=== PATIENT | female | born 1955 | race Caucasian/White ===

== ENCOUNTER 2017-07-31 12:38 | Inpatient (IN) | payer OTHER ==
[2017-07-31] VITALS (411 sets, daily range): BP systolic 113–132; BP diastolic 55–72; PULSE 100–112; TEMP 100.2–100.6; O2SAT 72–99
[~2017-07-31] VITALS: Ht 165.1 cm; Wt 71.4 kg
[~2017-07-31 12:38] MED LIST: ASPIRIN E.C. 8181 MG PO; COLACE 100100 MG/CAP PO; COZAAR 25MG25 MG/TAB PO; DILAUDID 2MG TAB2 MG PO; DULCOLAX S10 MG/SUPP REC; GLUCOPHAGE500 MG/TAB PO; LANTUS100 U/ML SC; LANTUS100 U/ML SQ; LEVEMIR SQ; LIPITOR20 MG PO; LOVENOX 4040 MG/0.4 SQ; MEDROL 4MG DOSPA4 MG PO; NICODERM C21 MG/PATC TD; NICODERM C21 MG/PATC TOP; NO HOME MEDICATIONS; NOVLOG; NOVLOG SQ; PLAVIX 75MG TAB75 MG PO; TYLENOL 325MG325 MG PO; ULTRAM 50MG TAB50 MG PO; XANAX 0.5MG0.5 MG PO; ZESTRIL 5MG5 MG PO; ZOFRAN 4MG T4 MG/TAB PO
[2017-07-31 13:35] LABS: HEMATOCRIT 43.9 % (37.0-47.0); HEMOGLOBIN 14.2 g/dl (12.5-16.0); MEAN CELL VOLUME 92 fl (80.0-100.0); MEAN CORPUSCULAR HEMOGLOBIN 30 pg (27.0-31.0); MEAN CORPUSCULAR HGB CONC 32 g/dl (33.0-37.0); MEAN PLATELET VOLUME 10.2 fl (7.4-10.4); PLATELET COUNT 292 K/mm3 (130-400); RED BLOOD COUNT 4.79 M/mm3 (4.10-5.30); REDCELL DISTRIBUTION WIDTH-CV 13.3 % (11.5-14.5)
[2017-07-31 13:44] LABS: INFLUENZA A NEGATIVE; INFLUENZA B NEGATIVE
[2017-07-31 13:47] LABS: ALANINE AMINOTRANSFERASE 77 U/L (9-52); ALBUMIN 3.7 gm/dL (3.5-5.0); ALKALINE PHOSPHATASE 368 U/L (50-136); ANION GAP 24 mmol/L (7-16); AST,SGOT 17 U/L (15-37); BILIRUBIN,TOTAL 0.9 mg/dL (0.0-1.0); BLOOD UREA NITROGEN 12 mg/dL (7-17); CALCIUM 9.4 mg/dL (8.4-10.2); CHLORIDE 97 mmol/L (98-107); CREATININE, serum 0.74 mg/dL (0.52-1.25); GLUCOSE 375 mg/dL (74-106); LIPASE 16 U/L (23-300); POTASSIUM 4.3 mmol/L (3.4-5.0); SODIUM 133 mmol/L (137-145); TOTAL PROTEIN 7.7 gm/dL (6.4-8.2)
[2017-07-31] MEDS ORDERED: LANTUS SOLOS100 U/ML SQ (13:48)
[2017-07-31] MEDS ORDERED: HUMALOG100 U/ML SQ (13:48)
[2017-07-31 13:50] LABS: CARBON DIOXIDE 12 mmol/L (22-30)
[2017-07-31 13:57] LABS: TROPONIN-I < 0.012 ng/mL (0.000-0.034)
[2017-07-31 13:59] LABS: BAND 37 % (0-10); LYMPHOCYTE 5 % (20.0-51.0); METAMYELOCYTE 1 % (0-0); NEUTROPHILS 52 % (42.0-75.2); PLATELET ESTIMATE NORMAL (NORMAL)
[2017-07-31 14:05] LABS: ACETONE,SERUM MODERATE
[2017-07-31 14:15] LABS: C-REACTIVE PROTEIN 50.7 mg/dL (0.0-0.9)
[2017-07-31 14:15] LABS: COLLECTION METHOD CLEAN CATCH
[2017-07-31 14:23] LABS: MUCOUS Present /lpf; PH 5 (5-8); SQUAMOUS EPITHELIAL 0-2 /hpf; URINE APPEARANCE Clear; URINE BACTERIA None Seen /hpf; URINE BILIRUBIN Negative (NEGATIVE); URINE BLOOD 1+ (NEGATIVE); URINE COLOR Yellow; URINE GLUCOSE 3+ (NEGATIVE); URINE KETONE 2+ (NEGATIVE); URINE LEUKOCYTE ESTERASE Negative (NEGATIVE); URINE NITRATE Negative (NEGATIVE); URINE PROTEIN(semi-quant) 1+ (NEGATIVE); URINE RBC 0-2 /hpf; URINE UROBILINOGEN Negative (NEGATIVE)
[2017-07-31 14:37] LABS: ARTERIAL BLD GAS O2 SATURATION 93.1 % (92-100); ARTERIAL BLD GAS TCO2 CT 11.2; ARTERIAL BLOOD GAS BASE EXCESS -14.2 (-2-2); ARTERIAL BLOOD GAS HCO3 10.5 meq/L (22-26); ARTERIAL BLOOD GAS PO2 68.8 mmHg (80-100); ARTERIAL BLOOD GAS pH 7.28 (7.35-7.45)
[2017-07-31 14:39] LABS: ARTERIAL BLOOD GAS PCO2 22.8 mmHg (35-45)
[2017-07-31 17:25] LABS: PHOSPHOROUS 2.8 mg/dL (2.5-4.5)
[2017-07-31 18:53] LABS: CALCIUM 7.1 mg/dL (8.4-10.2); CREATININE, serum 0.53 mg/dL (0.52-1.25)
[2017-08-01] VITALS (775 sets, daily range): BP systolic 96–115; BP diastolic 55–72; PULSE 80–102; TEMP 97–100; O2SAT 75–100
[2017-08-01 01:15] LABS: CALCIUM 8.1 mg/dL (8.4-10.2); CREATININE, serum 0.61 mg/dL (0.52-1.25); POTASSIUM 3.9 mmol/L (3.4-5.0)
[2017-08-01 05:50] LABS: CALCIUM 8.3 mg/dL (8.4-10.2); CREATININE, serum 0.56 mg/dL (0.52-1.25); POTASSIUM 4.5 mmol/L (3.4-5.0)
[2017-08-01 11:19] LABS: ARTERIAL BLD GAS O2 SATURATION 95.9 % (92-100); ARTERIAL BLD GAS TCO2 CT 17.5; ARTERIAL BLOOD GAS BASE EXCESS -7.3 (-2-2); ARTERIAL BLOOD GAS HCO3 16.6 meq/L (22-26); ARTERIAL BLOOD GAS PCO2 28.3 mmHg (35-45); ARTERIAL BLOOD GAS PO2 77.7 mmHg (80-100); ARTERIAL BLOOD GAS pH 7.39 (7.35-7.45)
[2017-08-01 11:20] LABS: CALCIUM 8.3 mg/dL (8.4-10.2); CREATININE, serum 0.48 mg/dL (0.52-1.25); POTASSIUM 3.6 mmol/L (3.4-5.0)
[2017-08-01 11:21] LABS: PHOSPHOROUS < 0.5 mg/dL (2.5-4.5)
[2017-08-01 20:44] LABS: CALCIUM 7.9 mg/dL (8.4-10.2); CREATININE, serum 0.5 mg/dL (0.52-1.25); MAGNESIUM 1.9 mg/dL (1.6-2.3); PHOSPHOROUS 1.2 mg/dL (2.5-4.5); POTASSIUM 3.5 mmol/L (3.4-5.0)
[2017-08-02 00:52] LABS: CREATININE, serum 0.49 mg/dL (0.52-1.25); POTASSIUM 3.2 mmol/L (3.4-5.0)
[2017-08-02 04:12] VITALS: BP 119/35; PULSE 93; TEMP 99.1
[2017-08-02 07:15] LABS: MEAN CELL VOLUME 89 fl (80.0-100.0); MEAN CORPUSCULAR HGB CONC 33 g/dl (33.0-37.0); PLATELET COUNT 284 K/mm3 (130-400); RED BLOOD COUNT 3.79 M/mm3 (4.10-5.30); REDCELL DISTRIBUTION WIDTH-CV 14.4 % (11.5-14.5)
[2017-08-02 07:28] LABS: CALCIUM 7.7 mg/dL (8.4-10.2); CREATININE, serum 0.5 mg/dL (0.52-1.25); MAGNESIUM 1.8 mg/dL (1.6-2.3); PHOSPHOROUS 1.6 mg/dL (2.5-4.5); POTASSIUM 3.2 mmol/L (3.4-5.0)
[2017-08-02 07:38] LABS: HEMATOCRIT 33.9 % (37.0-47.0); HEMOGLOBIN 11.1 g/dl (12.5-16.0); MEAN CORPUSCULAR HEMOGLOBIN 29 pg (27.0-31.0)
[2017-08-02 08:35] VITALS: BP 153/70; PULSE 63; TEMP 98.3
[2017-08-02 09:12] VITALS: BP 126/65; PULSE 87; TEMP 97.8
[2017-08-02 10:25] LABS: BAND 32 % (0-10); LYMPHOCYTE 17 % (20.0-51.0); METAMYELOCYTE 2 % (0-0); NEUTROPHILS 48 % (42.0-75.2); PLATELET ESTIMATE NORMAL (NORMAL)
[2017-08-02 11:10] VITALS: BP 121/46; PULSE 93; TEMP 100
[2017-08-02 12:28] LABS: CALCIUM 7.7 mg/dL (8.4-10.2); CREATININE, serum 0.47 mg/dL (0.52-1.25); POTASSIUM 3.5 mmol/L (3.4-5.0)
[2017-08-02 16:01] VITALS: BP 127/55; PULSE 76; TEMP 98.5
[2017-08-02 18:01] VITALS: BP 114/54; PULSE 81; TEMP 99.2
[2017-08-03] VITALS (7 sets, daily range): BP systolic 127–138; BP diastolic 53–72; PULSE 73–87; TEMP 98.2–99.8
[2017-08-03 07:00] LABS: MEAN CELL VOLUME 87 fl (80.0-100.0); MEAN CORPUSCULAR HGB CONC 35 g/dl (33.0-37.0); PLATELET COUNT 319 K/mm3 (130-400); RED BLOOD COUNT 3.75 M/mm3 (4.10-5.30); REDCELL DISTRIBUTION WIDTH-CV 14.3 % (11.5-14.5)
[2017-08-03 07:06] LABS: HEMATOCRIT 32.5 % (37.0-47.0); HEMOGLOBIN 11.2 g/dl (12.5-16.0); MEAN CORPUSCULAR HEMOGLOBIN 30 pg (27.0-31.0)
[2017-08-03 07:18] LABS: CALCIUM 7.7 mg/dL (8.4-10.2); CREATININE, serum 0.48 mg/dL (0.52-1.25); MAGNESIUM 1.8 mg/dL (1.6-2.3); PHOSPHOROUS 2.8 mg/dL (2.5-4.5); POTASSIUM 3.2 mmol/L (3.4-5.0)
[2017-08-03 08:31] LABS: BAND 27 % (0-10); LYMPHOCYTE 21 % (20.0-51.0); METAMYELOCYTE 1 % (0-0); NEUTROPHILS 49 % (42.0-75.2); PLATELET ESTIMATE NORMAL (NORMAL)
[2017-08-04 00:13] VITALS: BP 127/53; PULSE 84; TEMP 99
[2017-08-04 04:39] VITALS: BP 122/55; PULSE 85; TEMP 99.1
[2017-08-04 08:21] VITALS: BP 132/48; PULSE 85; TEMP 99
[2017-08-04 13:03] VITALS: BP 134/73; PULSE 78; TEMP 99.3
[2017-08-04] MEDS ORDERED: ZOFRAN 4MG T4 MG/TAB PO (13:46)
[2017-08-04] MEDS ORDERED: LEVAQUIN 750MG750 M1 PO (13:46)
[2017-08-04] MEDS ORDERED: LANTUS SOLOS100 U/ML SQ (13:56)
[2017-08-04] MEDS ORDERED: LIPITOR 40MG TA40 MG PO (13:58)
== END 2017-08-04 16:38 | disposition home or self-care (01) | DRG 871 ==
LOC: COL.ER 12:38 → MEDICAL 15:01 → ICU 15:01 → MEDICAL 08-01 18:38
PROVIDERS: Emergency Medicine; Internal Medicine; Internal Medicine Pulmonary Disease; Nurse Practitioner Family
DX: A41.9 Sepsis, unspecified organism (principal); J18.9 Pneumonia, unspecified organism; E11.10 Type 2 diabetes mellitus with ketoacidosis without coma; E87.1 Hypo-osmolality and hyponatremia; R65.20 Severe sepsis without septic shock; E83.39 Other disorders of phosphorus metabolism; F17.210 Nicotine dependence, cigarettes, uncomplicated; Z91.14 Patient's other noncompliance with medication regimen; Z86.73 Personal history of transient ischemic attack (TIA), and cerebral infarction without residual deficits; Z79.4 Long term (current) use of insulin
CPT/HCPCS: 99223-AI; 99232-AI; 99233-AI; 99239; J0692; J1170; J1650; J1815; J1885; J1956; J2405; J2765; J3480; J7030; J7040; J7042; J7120; Q9967